=== PATIENT | male | born 1945 | race Caucasian/White ===

== ENCOUNTER → 2019-11-18 09:41 | Outpatient (CLI) | payer MEDICARE | END | disposition home or self-care (01) | LOC: D.US 09:41 | PROVIDERS: ATTEND Family Medicine | DX: E80.6 Other disorders of bilirubin metabolism (principal) ==

== ENCOUNTER → 2020-12-25 10:40 | Day surgery (SDC) | payer MEDICARE ==
--- NOTE | 2020-12-24 14:50 | NUR ---
ATTEMPTED TO CONFIRM HIP INJECTION FOR TOMORROW - NO ANSWER, LEFT MESSAGE
--- NOTE | 2020-12-24 14:51 | NUR ---
ERROR IN PREVIOUS NOTE - CHARTED ON WRONG PT
--- NOTE | 2020-12-24 14:52 | NUR ---
CONFIRMED PT APPT FOR 12/25/20 ARRIVAL TIME: 1000 ALLX: NONE THINNERS: STOPPED ASA 12/20/20
--- NOTE | ~2020-12-25 | HEMODYNAMI ---
PATIENT:ERICH XAVIER MEDICAL RECORD: [id number] : 45 LOCATION:ESSENCE ADMISSION DATE: 12/25/20 Generatedon:111:20 Patient name: ERICH XAVIER Patient #: [id number] SSN: DO B: 1945 Date of study: 12/25/2020 Page: Of Hemodynamic Procedure Report Patient Data Patient Demographics Procedure consent was obtained First Name: ERICH Gender: Male Last Name: MORENITA : 1945 [facility] Initial: KEVIN Age: 75 year(s) Patient #: [id number] Race: Unknown Additional ID: [id number] Contact details Address: [address] [place] [address] State: [place] City: [place] Zip code: [address] Past Medical History Allergies: No known allergies Admission Admission Data Admission Date: 12/25/2020 Admission Time: 10:40 Procedure Procedure Types Cath Procedure Peripheral Cath Diagnostic Procedure Miscellaneous Aspiration/Injection (Joint) Procedure Description Procedure Date Procedure Date: 12/25/2020 Procedure Start Time: 11:11 Procedure Staff Name Function Lucio Ortiz MD Performing Physician Oralia Bingham RT Kindergarten Tutor Procedure Data Cath Procedure Fluoroscopy Diagnostic fluoroscopy Total fluoroscopy Time: 0.5 time: 0.5 min min Diagnostic fluoroscopy Total fluoroscopy dose: 8 dose: 8 mGy mGy Hemodynamics Rest Pre Cath Intra NCS Post Cath Procedure Log Time Note 10:48:06 SAFE-T PLUS MYELOGRAM TRAY opened to sterile field. 11:06:48 Time tracking: Regular hours (M-F 7:00 - 5:00) 11:06:55 Patient received from Other to IR Alert and oriented. Tansferred to table in Supine position. 11:06:57 Signed procedure consent form obtained from patient. 11:06:59 Pre-procedure instructions explained to patient. 11:07:00 Pre-op teaching completed and patient verbalized understanding. 11:07:09 Patient allergic to No known allergies 11:07:14 Is patient on blood thinner?No 11:07:26 Left Hip was prepped with betadine and draped in sterile fashion. 11:07:28 - 11:11:00 Physician arrived 11:: --------ALL STOP TIME OUT------ 11:11:02 Final Timeout: patient, procedure, and site verified with staff and physician. All members of the team are in agreement. 11:11:27 Procedure started. 11::27 Full Disclosure recording started 11:19:31 Procedure ended.(Physican Out) 11:19:38 Fluoroscopy time 00.50 minutes. 11:19:42 Fluoroscopy dose: 8 mGy 11:19:42 Flurop Dose total: 8 11:19:46 Procedure and supply charges have been captured, reviewed, submitted an d are correct. 11:20:04 Patient transfered to Other with Ambulatory. Device Usage Item Name Manufacture Quantity Catalog Hospital Part Current Minimal Lot# / Number Charge Number Stock Stock Serial# Code SAFE-T [employer] 1 [id number] PLUS MYELOGRAM TRAY Signature Audit [place] Stage Time Signature Unsigned Intra-Procedure 12/25/2020 Oralia Bingham 11:20:52 AM RT(R) [facility] [address] [place] [address]
== END | disposition home or self-care (01) ==
LOC: D.RAD 10:40
PROVIDERS: ATTEND Nurse Practitioner Family
DX: M16.0 Bilateral primary osteoarthritis of hip (principal); M25.552 Pain in left hip